=== PATIENT | female | born 1985 | race Caucasian/White ===

== ENCOUNTER 2023-04-01 12:24 | Emergency (ER) | payer SELFPAY ==
[2023-04-01 12:34] VITALS: BP 148/112; PULSE 83; RESP 16; TEMP 37.2; O2SAT 96; BMI 36.0
--- NOTE | 2023-04-01 12:47 | ED_ITS ---
HPI - GI Bleed General Chief complaint: GI Bleed Stated complaint: BLOOD IN STOOL Time Seen by Provider: 04/01/23 12:47 Source: patient Mode of arrival: walk-in History of Present Illness HPI Narrative: This emergency department complaining of abdominal cramping. She states that 3 and the morning she had diarrhea. The last 3 stools have been mucous bloody stools. Bright red blood. He states she gets severe cramping she has a bowel movement and then it resolves. She denies any dizziness, fever, palpitations, hematuria, dysuria. She's never had any problems like this before. She's never had a colonoscopy. There is no family history of colitis. She doesn't think she ate anything that could have made her sick. Patient denies any upper respiratory infection symptoms. She denies any chest pain, or shortness of breath.The patient denies any history of hemorrhoids. Related Data Home Medications Medication Instructions Recorded Confirmed buspirone 10 mg tablet 10 mg PO DAILY 04/01/23 04/01/23 escitalopram oxalate 10 mg tablet 10 mg PO DAILY 04/01/23 04/01/23 (Lexapro) Previous Rx's Medication Instructions Recorded metronidazole 500 mg tablet 500 mg PO Q8H 14 days #42 tabs 04/01/23 Allergies Allergy/AdvReac Type Severity Reaction Status Date / Time Sulfa (Sulfonamide Allergy Severe Hives Verified 04/01/23 12:42 Antibiotics) morphine AdvReac Severe hives Uncoded 04/01/23 12:42 Review of Systems ROS Status of ROS 10 or more systems reviewed and unremarkable except as noted in history and below [facility] Medical History (Updated 04/01/23 @ 17:15 by Dee Kirk MD) Social History Smoking status: Heavy tobacco smoker Exam Narrative Exam Narrative: Nurses notes and vital signs reviewed and patient is not hypoxic. General: Nontoxic, Well-appearing and in no apparent distress. Skin: Warm, dry, no pallor noted. No Rash Head: Normocephalic, atraumatic. Neck: Supple, non-tender. Eye: Pupils are equal, round and EOMI. No scleral icterus. Ears, Nose, Mouth, and Throat: TM clear, no posterior oropharynx erythema or nasal mucosal hypertrophy, uvula is mid-line Oral mucosa is moist Cardiovascular: Regular Rate and Rhythm without murmur, gallop or rub. Respiratory: No accessory muscle use or respiratory distress. Lungs are clear to auscultation, no wheezing, rales or rhonchi Chest Wall: no tenderness Back: No midline thoracic or lumbar vertebral tenderness. No CVA tenderness Musculoskeletal: normal ROM, no calf or popliteal tenderness, no lower extremity edema/swelling GI: Abdomen is soft, non-distended. Normal bowel sounds. No masses appreciated. mildleft lower quadrant tenderness to palpation. No rebound, guarding, or rigidity noted. Neurological: A&O x4. No cranial nerve dysfunction observed. No truncal ataxia. Moves all extremities. Sensation intact. Psychiatric: Cooperative and interactive. Normal mood and affect. Constitutional Vital Signs - 24 hr 04/01/23 12:34 Temperature 98.9 F Pulse Rate [Monitor] 83 Respiratory Rate 16 Blood Pressure [Left Arm] 148/112 H Pulse Oximetry 96 Oxygen Delivery Method Room Air Course Vital Signs Vital signs: Vital Signs Temperature 98.9 F 04/01/23 12:34 Pulse Rate 83 04/01/23 12:34 Respiratory Rate 16 04/01/23 12:34 Blood Pressure 148/112 H 04/01/23 12:34 Pulse Oximetry 96 04/01/23 12:34 Oxygen Delivery Method Room Air 04/01/23 12:34 Temperature 98.9 F 04/01/23 12:34 Pulse Rate 83 04/01/23 12:34 Respiratory Rate 16 04/01/23 12:34 Blood Pressure 148/112 H 04/01/23 12:34 Pulse Oximetry 96 04/01/23 12:34 Oxygen Delivery Method Room Air 04/01/23 12:34 MDM - GI Bleed MDM Narrative Medical decision making narrative: pt had an IV established. She was given 1 L of normal saline. Lab studies were done. patient remains hemodynamically stable.CT scan results were done. The patient was given us a stool sample. Patient felt better. I'll for social discussed with patient. Patient will be started on Flagyl prophylactically and will follow up with primary care doctor. We advised patient she will need to follow up with the travel money advisor. At this time the patient is without objective evidence of an acute process requiring hospitalization or inpatient management. The patient has remained hemodynamically stable. No additional indication for emergent studies at this time. I answered all questions. Discussed discharge instructions including standard anticipatory guidance and what should prompt a return to the emergency department, including if they get worse are not getting better or develops any new or concerning symptoms. I've given them specific time frame in which to follow-up, and who to follow-up with. The patient demonstrates understanding. Patient is nontoxic and stable for discharge with outpatient follow-up. This note was created with the assistance of a speech recognition program. Although the intention is to generate documents that actually reflects the content of the visit, no guarantees can be provided that every mistake has been identified and corrected by editing. Differential Diagnosis Differential diagnosis: Likely hemorrhoids, Lower gastrointestinal hemorrhage and hematochezia Lab Data Attestation: I reviewed the patient's lab results. Labs: Lab Results 04/01/23 04/01/23 Range/Units 13:15 15:20 WBC 11.5 H (4.0-11.0) 10^3/uL RBC 4.54 (4.20-5.40) 10^6/uL Hgb 13.6 (12.0-16.0) g/dL Hct 41.1 (36.0-48.0) % MCV 90.5 (81.0-99.0) fL MCH 30.0 (26.7-34.0) pg MCHC 33.1 (29.9-35.2) g/dL RDW 12.9 (11.0-15.0) % Plt Count 266 (150-450) 10^3/uL MPV 10.7 (9.5-13.5) fL Seg Neuts % (Manual) 62.0 Lymphocytes % (Manual) 27.0 (20.5-60.0) % Monocytes % (Manual) 5.0 (1.7-12.0) % Eosinophils % (Manual) 6.0 (0.9-7.0) % Basophils % (Manual) 0.0 L (0.2-2.0) % Neutrophils # (Manual) 7.13 H (1.4-6.5) 10^3/uL Lymphocytes # (Manual) 3.10 (1.20-3.80) 10^3/uL Monocytes # (Manual) 0.57 (0.30-0.80) 10^3/uL Eosinophils # (Manual) 0.69 (0.00-0.70) 10^3/uL Basophils # (Manual) 0.00 (0.00-0.10) 10^3/uL Sodium 137 (136-145) mmol/L Potassium 4.2 (3.5-5.1) mmol/L Chloride 103 (98-107) mmol/L Carbon Dioxide 27.1 (21.0-32.0) mmol/L Anion Gap 11.1 BUN 9.0 (7.0-18.0) mg/dL Creatinine 0.72 (0.55-1.02) mg/dL Est GFR ( Amer) >60 (>=60) Est GFR (Non-Af Amer) >60 (>=60) BUN/Creatinine Ratio 12.5 Glucose 134 H (74-106) mg/dL Calcium 8.6 (8.5-10.1) mg/dL Total Bilirubin 0.4 (0.2-1.0) mg/dL AST 10 L (15-37) U/L ALT 22 (14-59) U/L Alkaline Phosphatase 63 (46-116) U/L Total Protein 6.8 (6.4-8.2) g/dL Albumin 3.7 (3.4-5.0) g/dL Globulin 3.1 g/dL Albumin/Globulin Ratio 1.2 Lipase 98.0 (73.0-393.0) U/L Stool Occult Blood Positive A Stl C. cayetanensis PCR Not detected (NOT DETECTE) Stool Rotavirus (PCR) Not detected (NOT DETECTE) Stool Adenovirus (PCR) Not detected (NOT DETECTE) Stool Astrovirus (PCR) Not detected (NOT DETECTE) Stool Campylobacter PCR Not detected (NOT DETECTE) Stool Cryptosporidium PCR Not detected (NOT DETECTE) St Sh/Enteroin Ecoli PCR Not detected (NOT DETECTE) Stool E.coli 0157 Cult Not detected (NOT DETECTE) Stl Enterotoxigenic E PCR Not detected (NOT DETECTE) Stool EPEC (PCR) Not detected (NOT DETECTE) Stl E. histolytica PCR Not detected (NOT DETECTE) Stool Giardia Lamblia PCR Not detected (NOT DETECTE) Stl P. shigelloides PCR Not detected (NOT DETECTE) Stool Salmonella PCR Not detected (NOT DETECTE) Stool Sapovirus (PCR) Not detected (NOT DETECTE) Stl Shiga-like Tx 1 PCR Not detected (NOT DETECTE) St Y.enterocolitica PCR Not detected (NOT DETECTE) Stl Vibrio cholerae PCR Not detected (NOT DETECTE) Stl Enteroaggr Ecoli PCR Not detected (NOT DETECTE) Stl Norovirus GI/GII PCR Not detected (NOT DETECTE) C. difficile Toxin A&B Not detected (NOT DETECTE) Vibrio Culture Not detected (NOT DETECTE) Discharge Plan Discharge Chief Complaint: GI Bleed Clinical Impression: Colitis Patient Disposition: Home, Self-Care Time of Disposition Decision: 17:15 Condition: Good Mode of Transportation: Private Vehicle Prescriptions / Home Meds: New metronidazole 500 mg tablet 500 mg PO Q8H 14 Days Qty: 42 0RF No Action buspirone 10 mg tablet 10 mg PO DAILY escitalopram oxalate [Lexapro] 10 mg tablet 10 mg PO DAILY Instructions: Colitis (ED) Stand Alone Forms: Portal Instructions Referrals: SHARYN OSMAN MD [Physician] - 1 week Physician,Non-Staff, [Primary Care Provider] - 1 week Discharge Date/Time: 04/01/23 17:32
--- NOTE | 2023-04-01 12:57 | CT_ITS ---
[address] [address] Patient Name: ARABELLA SMAANIEGO MRN: [id number] date: 1985 Sex: F Assigned Patient Location: ER Current Patient Location: ER Accession/Order Number: [id number] Exam Date: 04/01/2023 13:40 Report Date: 04/01/2023 14:19 At the request of: SAMMY CHARLES Procedure: CT abdomen pelvis w con EXAMINATION: CT ABDOMEN AND PELVIS WITH IV CONTRAST CLINICAL HISTORY: Hematochezia TECHNIQUE: CT of the abdomen and pelvis was performed using standard technique, scanning from just above the dome of the diaphragm to the symphysis pubis. All CT scans at this facility use dose modulation, iterative reconstruction, and/or weight based dosing when appropriate to reduce radiation dose to as low as reasonably achievable. Contrast: IV: 100 ml of Omnipaque 350r COMPARISON: None. RESULT: Liver: No mass. Hepatomegaly, craniocaudal length 22.3 cm. Biliary: No bile duct dilation. Gallbladder is unremarkable. Spleen: No mass. No splenomegaly. Pancreas: No mass or duct dilation. Adrenals: No mass. Kidneys: No mass, calculus or hydronephrosis. GI tract: Stomach is unremarkable. Diffuse wall thickening, mild hyperemia involving the descending and rectosigmoid colon concerning for infectious colitis. No bowel dilation. Appendix is unremarkable. Lymph nodes: No abdominal or pelvic lymphadenopathy. Mesentery/Peritoneum: No ascites or mass. Retroperitoneum: No mass. Vasculature: The celiac axis and SMA are patent. The portal vein and branches, splenic vein, SMV, and hepatic veins are patent. No abdominal aortic aneurysm. Pelvis: No mass, ascites or fluid collection. Urinary bladder is unremarkable. Bilateral ovarian cysts. Bones/Soft Tissues: No significant finding. Lower thorax: Unremarkable. IMPRESSION: Diffuse descending colon and rectosigmoid wall thickening and hyperemia concerning for infectious colitis. Hepatomegaly. Electronically authenticated by: SUSI DAVIDSON Date: 04/01/2023 14:19
--- NOTE | 2023-04-01 12:57 | ECG_ITS ---
The [facility] Test Date: 2023-04-01 Pat Name: ARABELLA SAMANIEGO Department: Room: - Gender: Female [employer]: : 1985 Requested By: Order Number: [id number] Reading MD: LAURA DUQUE Measurements Intervals [place] Rate: 62 P: 49 [place]: 204 QRS: 79 QRSD: 84 T: 64 QT: 432 QTc: 437 Interpretive Statements 1100 Sinus rhythm 1570 with occasional ventricular premature complexes 8102 Low QRS voltage in chest leads 9140 abnormal rhythm ECG No previous ECG available for comparison Electronically Signed On 04-02-2023 6:23:27 EDT by LAURA DUQUE
[2023-04-01 13:34] VITALS: PULSE 62
[2023-04-01 13:34] LABS: Hematocrit 41.1 % (36.0-48.0); Hemoglobin 13.6 g/dL (12.0-16.0); Mean Corpuscular HGB Conc 33.1 g/dL (29.9-35.2); Mean Corpuscular Volume 90.5 fL (81.0-99.0); Mean Platelet Volume 10.7 fL (9.5-13.5); Platelet Count 266 10^3/uL (150-450); Red Blood Count 4.54 10^6/uL (4.20-5.40); Red Cell Distribution Width 12.9 % (11.0-15.0); White Blood Count 11.5 10^3/uL (4.0-11.0)
[2023-04-01 13:47] LABS: Alanine Aminotransferase 22 U/L (14-59); Albumin Globulin Ratio 1.2; Albumin Level 3.7 g/dL (3.4-5.0); Alkaline Phosphatase 63 U/L (46-116); Anion Gap 11.1; Aspartate Amino Transferase 10 U/L (15-37); BUN Creatinine Ratio 12.5; Bilirubin Total 0.4 mg/dL (0.2-1.0); Calcium 8.6 mg/dL (8.5-10.1); Carbon Dioxide 27.1 mmol/L (21.0-32.0); Chloride 103 mmol/L (98-107); Estimated GFR (African America >60 (>=60); Estimated GFR (Non-African Ame >60 (>=60); Globulin 3.1 g/dL; Glucose 134 mg/dL (74-106); Potassium 4.2 mmol/L (3.5-5.1); Sodium 137 mmol/L (136-145); Total Protein 6.8 g/dL (6.4-8.2)
[2023-04-01] MEDS: PANTOPRAZOLE SODIUM 40 MG VIAL IV (13:51)
[2023-04-01] MEDS: 0.9 % SODIUM CHLORIDE 1,000 ML 999 ML IV (13:52)
[2023-04-01 13:54] LABS: Eosinophils Absolute Manual 0.69 10^3/uL (0.00-0.70); Monocytes Absolute Manual 0.57 10^3/uL (0.30-0.80); Segmented Neut Absolute Manual 7.13 10^3/uL (1.4-6.5)
[2023-04-01 15:29] LABS: Adenovirus F 40/41 NOT DETECTED (NOT DETECTE); Astrovirus NOT DETECTED (NOT DETECTE); Campylobacter NOT DETECTED (NOT DETECTE); Cryptosporidium NOT DETECTED (NOT DETECTE); Cyclospora cayetanensis NOT DETECTED (NOT DETECTE); E coli 0157 NOT DETECTED (NOT DETECTE); Entamoeba histolytica NOT DETECTED (NOT DETECTE); Enteroaggregative E.coli NOT DETECTED (NOT DETECTE); Enteropathogenic E.coli NOT DETECTED (NOT DETECTE); Enterotoxigenic E. coli NOT DETECTED (NOT DETECTE); Giardia lamblia NOT DETECTED (NOT DETECTE); Norovirus GI/GII NOT DETECTED (NOT DETECTE); Plesiomonas shigelloides NOT DETECTED (NOT DETECTE); Rotavirus A NOT DETECTED (NOT DETECTE); Salmonella NOT DETECTED (NOT DETECTE); Sapovirus NOT DETECTED (NOT DETECTE); Shiga-like toxin-producing E.C NOT DETECTED (NOT DETECTE); Shigella/Enteroinvasive E.coli NOT DETECTED (NOT DETECTE); Vibrio NOT DETECTED (NOT DETECTE); Vibrio cholerae NOT DETECTED (NOT DETECTE); Yersinia enterocolitica NOT DETECTED (NOT DETECTE)
[2023-04-01 15:45] LABS: Occult Blood Positive
== END 2023-04-01 17:32 | disposition home or self-care (01) ==
PROVIDERS: Emergency Provider Emergency Medicine
DX: K52.9 Noninfective gastroenteritis and colitis, unspecified (principal); Z79.899 Other long term (current) drug therapy; F17.210 Nicotine dependence, cigarettes, uncomplicated
CPT/HCPCS: 36415; 74177; 80053; 83690; 85027; 87507; 93005; 96374; 99285; G0328; Q9967

== ENCOUNTER 2023-08-06 19:24 | Emergency (ER) | payer OTHER, SELFPAY ==
[2023-08-06 19:30] VITALS: BP 138/85; PULSE 74; RESP 16; TEMP 36.7; O2SAT 98; BMI 34.3
--- NOTE | 2023-08-06 19:53 | XR_ITS ---
The [address] [address] Patient Name: ARABELLA SAMANIEGO MRN: [id number] date: 1985 Sex: F Assigned Patient Location: ED.MAIN Current Patient Location: ER Accession/Order Number: [id number] Exam Date: 08/06/2023 20:35 Report Date: 08/06/2023 20:48 At the request of: VILMA PALOMO Procedure: XR chest 1V EXAM: XR chest 1V at 2002 hours HISTORY: Cough COMPARISON: None. TECHNIQUE: AP upright portable chest x-ray FINDINGS: The heart is not enlarged and the vasculature is not distended. No acute infiltrate, effusion or pneumothorax is identified. The osseous structures are grossly intact. XR/XR chest 1V IMPRESSION: No acute infiltrate or evidence of cardiac decompensation. Direct comparison with a previous study may be helpful in determining the chronicity of these findings. Electronically authenticated by: IGNACIO BINGHAM Date: 08/06/2023 20:48
--- NOTE | 2023-08-06 19:57 | ED_ITS ---
HPI - URI/Sore Throat General Chief Complaint: Upper Respiratory Infection Stated Complaint: cough, nausea Time Seen by Provider: 08/06/23 19:39 History of Present Illness HPI Narrative: patient is a 38-year-old female to history of asthma presents the emergency department for four day history of cough, chest congestion, wheezing and nausea. She states she had an episode of emesis last night. She has had no objective fevers. She is regular smoker. She is not concerned for . No medications taken prior to arrival. She does have an albuterol inhaler at home that she tried earlier today without improvement. Related Data Home Medications Medication Instructions Recorded Confirmed buspirone 10 mg tablet 10 mg PO DAILY 04/01/23 04/01/23 escitalopram oxalate 10 mg tablet 10 mg PO DAILY 04/01/23 04/01/23 (Lexapro) Previous Rx's Medication Instructions Recorded azithromycin 250 mg tablet See Rx Instructions PO .COMPLEX #6 08/06/23 (Zithromax Z-Sergio) tabs [id number]-mqnhibbzqfuhakd-QP 10 ml PO Q6H PRN cold symptoms 08/06/23 2 mg-30 mg-10 mg/5 mL oral syrup #200 mL (Bromfed DM) methylprednisolone 4 mg tablets in See Rx Instructions .Route 08/06/23 a dose pack (Medrol (Sergio)) .COMPLEX #21 ea ondansetron 4 mg disintegrating 4 mg PO Q6H PRN nausea and 08/06/23 tablet vomiting #12 tabs Allergies Allergy/AdvReac Type Severity Reaction Status Date / Time Sulfa (Sulfonamide Allergy Severe Hives Verified 04/01/23 12:42 Antibiotics) morphine AdvReac Severe hives Uncoded 04/01/23 12:42 Review of Systems ROS Constitutional Denies: fever or chills Ears, nose, mouth, and throat Reports: throat pain and nasal congestion Respiratory Reports: shortness of breath, cough and wheezing Gastrointestinal Reports: nausea and vomiting Musculoskeletal Denies: back pain Integumentary/Breast Denies: rash Neurological Denies: headache Hematologic/Lymphatic Denies: easy bruising [facility] Medical History (Updated 08/06/23 @ 20:52 by RUBEN Quinteros) Bipolar disorder ?F31.9 - Bipolar disorder, unspecified (ICD-10) Depression ?F32.A - Depression, unspecified (ICD-10) Obesity ?E66.9 - Obesity, unspecified (ICD-10) Social History Smoking status: Current every day smoker Exam Narrative Exam Narrative: Gen.: Awake, alert, in no distress Head: Normocephalic, atraumatic ENT: Moist mucous membranes Respiratory: No respiratory distress, expiratory wheezing globally Cardio: Regular rate and rhythm Extremities: Moves extremities equally Psych: Normal mood and affect Neuro: No focal neuro deficit Skin: Warm, dry, intact Constitutional Vital Signs, click to edit/add: Last Vital Signs Temp 98.0 F 08/06/23 19:30 Pulse 66 08/06/23 20:25 Resp 18 08/06/23 20:25 BP 138/85 08/06/23 19:30 Pulse Ox 99 08/06/23 20:25 O2 Del Method Room Air 08/06/23 20:25 Course Vital Signs Vital signs: Vital Signs Temperature 98.0 F 08/06/23 19:30 Pulse Rate 74 08/06/23 19:30 Respiratory Rate 16 08/06/23 19:30 Blood Pressure 138/85 08/06/23 19:30 Pulse Oximetry 98 08/06/23 19:30 Oxygen Delivery Method Room Air 08/06/23 19:30 Temperature 98.0 F 08/06/23 19:30 Pulse Rate 66 08/06/23 20:25 Respiratory Rate 18 08/06/23 20:25 Blood Pressure 138/85 08/06/23 19:30 Pulse Oximetry 99 08/06/23 20:25 Oxygen Delivery Method Room Air 08/06/23 20:25 MDM - URI/Sore Throat MDM Narrative Medical decision making narrative: patient with a negative Covid test, negative chest x-ray. She was given a breathing treatment and steroids in the Emergency Room. She'll be discharged home with antibiotics, Bromfed-DM, steroids. She has an albuterol inhaler at home and that she can use. Follow-up with PCP and return to the Emergency Room if symptoms change or worsen. vital signs stable at discharge. Medical Records Attestation: I reviewed the patient's medical records. Lab Data Attestation: I reviewed the patient's lab results. Labs: Lab Results 08/06/23 Range/Units 20:11 SARS-CoV-2 (PCR) Negative (NEGATIVE) Imaging Data Chest x-ray: Attestation: I have reviewed the pertinent imaging results. Radiologist's impression: Procedure: XR chest 1V EXAM: XR chest 1V at 2002 hours HISTORY: Cough COMPARISON: None. TECHNIQUE: AP upright portable chest x-ray FINDINGS: The heart is not enlarged and the vasculature is not distended. No acute infiltrate, effusion or pneumothorax is identified. The osseous structures are grossly intact. IMPRESSION: No acute infiltrate or evidence of cardiac decompensation. Direct comparison with a previous study may be helpful in determining the chronicity of these findings. Electronically authenticated by: IGNACIO BINGHAM Date: 08/06/2023 20:48 Discharge Plan Discharge Chief Complaint: Upper Respiratory Infection Clinical Impression: Upper respiratory infection Patient Disposition: Home, Self-Care Time of Disposition Decision: 20:52 Condition: Good Prescriptions / Home Meds: New azithromycin [Zithromax Z-Sergio] 250 mg tablet See Rx Instructions .ROUTE .COMPLEX Qty: 6 0RF Rx Instructions: For 250 mg dose pack: take 500 mg today (day 1), then 250 mg for 4 days (days 2-5) methylprednisolone [Medrol (Sergio)] 4 mg tablets,dose pack See Rx Instructions .ROUTE .COMPLEX Qty: 21 0RF Rx Instructions: Taper as directed [id number]-ertqbzibg-NX [Bromfed DM] 2-30-10 mg/5 mL syrup 10 ml PO Q6H PRN (Reason: cold symptoms) Qty: 200 0RF ondansetron 4 mg tablet,disintegrating 4 mg PO Q6H PRN (Reason: nausea and vomiting) Qty: 12 0RF No Action buspirone 10 mg tablet 10 mg PO DAILY escitalopram oxalate [Lexapro] 10 mg tablet 10 mg PO DAILY Instructions: Upper Respiratory Infection (ED) Stand Alone Forms: Portal Instructions Referrals: Physician,Non-Staff, MD [Primary Care Provider] - 1 week Discharge Date/Time: 08/06/23 20:59
[2023-08-06] MEDS: PREDNISONE 20 MG TABLET 60 MG PO (20:12)
[2023-08-06] MEDS: ONDANSETRON 4 MG RAPDIS TABLET SL (20:12)
[2023-08-06 20:13] VITALS: PULSE 71; RESP 18; O2SAT 96
[2023-08-06] MEDS: ALBUTEROL SULFATE 2.5 MG/3 ML VIAL NEB IH (20:13)
[2023-08-06] MEDS: IPRATROPIUM/ALBUTEROL SULFATE 3 ML AMPUL.NEB IH (20:13)
[2023-08-06 20:25] VITALS: PULSE 66; RESP 18; O2SAT 99
[2023-08-06 20:28] LABS: SARS-CoV-2 Ag NEGATIVE (NEGATIVE)
[2023-08-07 15:24] LABS: SARS-CoV-2 NAA NOT DETECTED (NOT DETECTE)
== END 2023-08-06 20:59 | disposition home or self-care (01) ==
PROVIDERS: Physician Assistant; Emergency Provider Internal Medicine
DX: J06.9 Acute upper respiratory infection, unspecified (principal); F31.9 Bipolar disorder, unspecified; E66.9 Obesity, unspecified; Z20.822 Contact with and (suspected) exposure to COVID-19; Z68.34 Body mass index [BMI] 34.0-34.9, adult; F17.210 Nicotine dependence, cigarettes, uncomplicated; Z79.899 Other long term (current) drug therapy
CPT/HCPCS: 71045; 87635; 87811; 94640; 99284

== ENCOUNTER 2023-08-11 09:55 | Emergency (ER) | payer OTHER, SELFPAY ==
[2023-08-11 10:22] VITALS: BP 140/101; PULSE 67; RESP 18; TEMP 37.1; O2SAT 98; BMI 35.2
--- NOTE | 2023-08-11 10:28 | XR_ITS ---
The [address] [address] Patient Name: ARABELLA SAMANIEGO MRN: [id number] date: 1985 Sex: F Assigned Patient Location: ER Current Patient Location: ER Accession/Order Number: [id number] Exam Date: 08/11/2023 10:35 Report Date: 08/11/2023 10:51 At the request of: DIETER YEPEZ Procedure: XR chest 1V PROCEDURE: XR chest 1V DATE: 08/11/2023 9:35 AM CDT COMPARISONS: 08/06/2023 CLINICAL INDICATION: 38 years Female sob FINDINGS: The cardiomediastinal silhouette and pulmonary vasculature are within normal limits. The lungs are clear. There is no evidence of pleural effusion or pneumothorax. There is subtle 7 mm lucency overlying the medial right clavicle also seen on previous exam. This may represent a bone cyst. Its etiology is unclear. It probably is of no clinical significance. XR/XR chest 1V IMPRESSION: Chest radiograph is within normal limits. Electronically authenticated by: GRECIA MUSE Date: 08/11/2023 10:51
[2023-08-11] MEDS: METHYLPREDNISOLONE SOD SUCC PF 125 MG/2 ML VIAL IVP (11:54)
[2023-08-11] MEDS: IPRATROPIUM/ALBUTEROL SULFATE 3 ML AMPUL.NEB IH (12:00)
[2023-08-11 12:01] VITALS: O2SAT 97
[2023-08-11 12:26] VITALS: BP 136/88; PULSE 89; RESP 18; O2SAT 98
--- NOTE | 2023-08-11 18:40 | ED.URI1 ---
HPI - URI/Sore Throat General Chief Complaint: Upper Respiratory Infection Stated Complaint: URTI COMPLAINTS Time Seen by Provider: 08/11/23 10:27 Source: patient Limitations: no limitations History of Present Illness HPI Narrative: The patient was recently diagnosed with a asthma exacerbation discharged home with Medrol Dosepak she is coming to us after there was no improvement of her symptoms she still feeling tight in her chest No other complaints of chest pain Related Data Home Medications Medication Instructions Recorded Confirmed buspirone 10 mg tablet 10 mg PO DAILY 04/01/23 04/01/23 escitalopram oxalate 10 mg tablet 10 mg PO DAILY 04/01/23 04/01/23 (Lexapro) Previous Rx's Medication Instructions Recorded azithromycin 250 mg tablet See Rx Instructions PO .COMPLEX #6 08/06/23 (Zithromax Z-Sergio) tabs usihwnznxazxhbv-nzcfbzwwyzmmapu-XX 10 ml PO Q6H PRN cold symptoms 08/06/23 2 mg-30 mg-10 mg/5 mL oral syrup #200 mL (Bromfed DM) ondansetron 4 mg disintegrating 4 mg PO Q6H PRN nausea and 08/06/23 tablet vomiting #12 tabs famotidine 20 mg tablet (Pepcid) 20 mg PO BID #14 tabs 08/11/23 prednisone 20 mg tablet 40 mg PO DAILY 5 days #10 tabs 08/11/23 Allergies Allergy/AdvReac Type Severity Reaction Status Date / Time Sulfa (Sulfonamide Allergy Severe Hives Verified 04/01/23 12:42 Antibiotics) morphine Allergy Intermediate Hives Verified 08/07/23 07:21 Review of Systems ROS Status of ROS 10 or more systems reviewed and unremarkable except as noted in history and below PFSH [facility] Medical History (Updated 08/11/23 @ 12:26 by Kadie Suarez MD) Bipolar disorder ?F31.9 - Bipolar disorder, unspecified (ICD-10) Depression ?F32.A - Depression, unspecified (ICD-10) Obesity ?E66.9 - Obesity, unspecified (ICD-10) Social History Smoking status: Current every day smoker Exam Narrative Exam Narrative: Nurses notes and vital signs reviewed and patient is not hypoxic. General: Well-appearing and in no apparent distress. Skin: Warm, dry, no pallor noted. No rash. Head: Normocephalic, atraumatic. Neck: Supple, non-tender. Eye: Pupils are equal, round and EOMI. No scleral icterus. Ears, Nose, Mouth, and Throat: TM are clear, no nasal mucosal hypertrophy. Oral mucosa is moist, no posterior oropharynx erythema, uvula is mid-line Cardiovascular: Regular Rate and Rhythm without murmur, gallop or rub. Respiratory: No accessory muscle use or respiratory distress. Lungs bilateral expiratory lung wheezes heard in both lung salcido Chest Wall: no tenderness Back: No midline thoracic or lumbar vertebral tenderness. No CVA tenderness Musculoskeletal: normal ROM, no calf or popliteal tenderness, no lower extremity edema/swelling GI: Abdomen is soft, non-distended. Normal bowel sounds. No masses appreciated. No tenderness to palpation. No rebound, guarding, or rigidity noted. Neurological: A&O x4. No cranial nerve dysfunction observed. No truncal ataxia. Moves all extremities. Sensation intact. Psychiatric: Cooperative and interactive. Normal mood and affect. Constitutional Vital Signs, click to edit/add: Last Vital Signs Temp 98.8 F 08/11/23 10:22 Pulse 89 08/11/23 12:26 Resp 18 08/11/23 12:26 BP 136/88 08/11/23 12:26 Pulse Ox 98 08/11/23 12:26 O2 Del Method Nasal Cannula 08/11/23 12:01 Course Vital Signs Vital signs: Vital Signs Temperature 98.8 F 08/11/23 10:22 Pulse Rate 67 08/11/23 10:22 Respiratory Rate 18 08/11/23 10:22 Blood Pressure 140/101 H 08/11/23 10:22 Pulse Oximetry 98 08/11/23 10:22 Oxygen Delivery Method Room Air 08/11/23 10:22 Temperature 98.8 F 08/11/23 10:22 Pulse Rate 89 08/11/23 12:26 Respiratory Rate 18 08/11/23 12:26 Blood Pressure 136/88 08/11/23 12:26 Pulse Oximetry 98 08/11/23 12:26 Oxygen Delivery Method Nasal Cannula 08/11/23 12:01 MDM - URI/Sore Throat MDM Narrative Medical decision making narrative: The patient chest x-ray showed no acute pathology she was provided with a Solu-Medrol in the ER after which she was feeling much better Discharged home with prednisone The patient to come back in case of any new symptoms or concerns The patient is to follow up with primary care physician in next 2-3 days or to return to the emergency department should any of the signs or symptoms worsen or new symptoms develop. The patient agrees with the following Diagnosis and Treatment plan and the patient will be discharged home. Discharge Plan Discharge Chief Complaint: Upper Respiratory Infection Clinical Impression: Asthma exacerbation Patient Disposition: Home, Self-Care Time of Disposition Decision: 12:25 Condition: Good Prescriptions / Home Meds: New prednisone 20 mg tablet 40 mg PO DAILY 5 Days Qty: 10 0RF famotidine [Pepcid] 20 mg tablet 20 mg PO BID Qty: 14 0RF Discontinued methylprednisolone [Medrol (Sergio)] 4 mg tablets,dose pack See Rx Instructions .ROUTE .COMPLEX Qty: 21 0RF Rx Instructions: Taper as directed No Action buspirone 10 mg tablet 10 mg PO DAILY escitalopram oxalate [Lexapro] 10 mg tablet 10 mg PO DAILY azithromycin [Zithromax Z-Sergio] 250 mg tablet See Rx Instructions .ROUTE .COMPLEX Qty: 6 0RF Rx Instructions: For 250 mg dose pack: take 500 mg today (day 1), then 250 mg for 4 days (days 2-5) ppchaclpazrmawb-xghxxzigb-TO [Bromfed DM] 2-30-10 mg/5 mL syrup 10 ml PO Q6H PRN (Reason: cold symptoms) Qty: 200 0RF ondansetron 4 mg tablet,disintegrating 4 mg PO Q6H PRN (Reason: nausea and vomiting) Qty: 12 0RF Instructions: Asthma (ED) Stand Alone Forms: Portal Instructions Referrals: Physician,Non-Staff, MD [Primary Care Provider] - 1 week Discharge Date/Time: 08/11/23 12:33
== END 2023-08-11 12:33 | disposition home or self-care (01) ==
PROVIDERS: Emergency Provider Emergency Medicine
DX: J45.901 Unspecified asthma with (acute) exacerbation (principal); F31.9 Bipolar disorder, unspecified; E66.9 Obesity, unspecified; Z68.35 Body mass index [BMI] 35.0-35.9, adult; F17.210 Nicotine dependence, cigarettes, uncomplicated; Z79.899 Other long term (current) drug therapy
CPT/HCPCS: 71045; 94640; 96374; 99284; J2930

== ENCOUNTER 2023-10-10 20:16 | Emergency (ER) | payer OTHER, SELFPAY ==
[2023-10-10 20:20] VITALS: BP 142/83; PULSE 60; RESP 18; TEMP 36.9; O2SAT 99; BMI 35.2
--- NOTE | 2023-10-10 20:30 | ED_ITS ---
HPI - URI/Sore Throat General Chief Complaint: Upper Respiratory Infection Stated Complaint: URTI Time Seen by Provider: 10/10/23 20:25 Source: patient Limitations: no limitations History of Present Illness HPI Narrative: 38 year old female presents to the ED for sore throat, sinus congestion/drainage, cough, body aches, fatigue. Onset was 10/05/23. Denies fever, SOB, emesis, diarrhea. Rates her pain /10. Denies chance of . MD elicited complaint: Reports cough, sore throat, rhinorrhea and nasal congestion; Denies fever Related Data Home Medications Medication Instructions Recorded Confirmed buspirone 10 mg tablet 10 mg PO DAILY 04/01/23 04/01/23 escitalopram oxalate 10 mg tablet 10 mg PO DAILY 04/01/23 04/01/23 (Lexapro) Previous Rx's Medication Instructions Recorded azithromycin 250 mg tablet See Rx Instructions PO .COMPLEX #6 08/06/23 (Zithromax Z-Sergio) tabs lxfewjpmsogwinn-bpoqarlypxgjzgi-TS 10 ml PO Q6H PRN cold symptoms 08/06/23 2 mg-30 mg-10 mg/5 mL oral syrup #200 mL (Bromfed DM) ondansetron 4 mg disintegrating 4 mg PO Q6H PRN nausea and 08/06/23 tablet vomiting #12 tabs famotidine 20 mg tablet (Pepcid) 20 mg PO BID #14 tabs 08/11/23 prednisone 20 mg tablet 40 mg (2 x 20 mg) PO DAILY 5 days 08/11/23 #10 tabs benzonatate 100 mg capsule 100 mg PO TID PRN cough #20 caps 10/10/23 guaifenesin 600 mg tablet, 600 mg PO BID PRN congestion, 10/10/23 extended release 12 hr (Mucinex) cough #10 tabs prednisone 20 mg tablet 40 mg (2 x 20 mg) PO DAILY #10 tabs 10/10/23 Allergies Allergy/AdvReac Type Severity Reaction Status Date / Time Sulfa (Sulfonamide Allergy Severe Hives Verified 04/01/23 12:42 Antibiotics) morphine Allergy Intermediate Hives Verified 08/07/23 07:21 Review of Systems ROS Constitutional Reports: chills; Denies: fever Ears, nose, mouth, and throat Reports: throat pain, nasal discharge and nasal congestion; Denies: neck pain, throat swelling, ear pain or ear discharge Cardiovascular Reports: chest pain Respiratory Reports: cough; Denies: shortness of breath, wheezing or stridor Gastrointestinal Denies: abdominal pain, nausea, vomiting or diarrhea Musculoskeletal Denies: back pain or neck pain Integumentary/Breast Denies: rash Neurological Reports: headache [facility] Medical History (Updated 10/10/23 @ 20:55 by Jeny Kincaid) Obesity ?E66.9 - Obesity, unspecified (ICD-10) Bipolar disorder ?F31.9 - Bipolar disorder, unspecified (ICD-10) Depression ?F32.A - Depression, unspecified (ICD-10) Social History Smoking status: Current every day smoker Exam Constitutional Vital Signs, click to edit/add: Last Vital Signs Temp 98.4 F 10/10/23 20:20 Pulse 60 10/10/23 20:20 Resp 18 10/10/23 20:20 BP 142/83 H 10/10/23 20:20 Pulse Ox 99 10/10/23 20:20 Common normals: no apparent distress and oriented x3 General appearance: cooperative HENUT Common normals: normocephalic Face and sinus: normal facial exam Nose: external nose normal and nasal discharge External ear: external ears normal Mouth: oral and palatal mucosa normal and tongue normal; no drooling Eye Common normals: conjunctivae normal and no scleral icterus Neck & C-Spine Common normals: supple Chest Common normals: inspection of chest normal Chest: symmetrical chest wall rise Respiratory Common normals: normal respiratory effort Effort & inspection: symmetric chest movement Auscultation: clear to auscultation bilaterally Cardio Common normals: regular rate and regular rhythm Neuro Common normals: oriented x3 Sensorium/orientation: alert Speech: speech normal Gait (neuro): normal gait Course Vital Signs Vital signs: Vital Signs Temperature 98.4 F 10/10/23 20:20 Pulse Rate 60 10/10/23 20:20 Respiratory Rate 18 10/10/23 20:20 Blood Pressure 142/83 H 10/10/23 20:20 Pulse Oximetry 99 10/10/23 20:20 Temperature 98.4 F 10/10/23 20:20 Pulse Rate 60 12/20/23 20:20 Respiratory Rate 18 10/10/23 20:20 Blood Pressure 142/83 H 10/10/23 20:20 Pulse Oximetry 99 10/10/23 20:20 MDM - URI/Sore Throat MDM Narrative Medical decision making narrative: She tested positive for Covid-19. Influenza and strep were negative. Prescrip tions were provided for mucinex, prednisone, and tessalon perles. Follow up with pcp for a recheck, further evaluation and treatment. Return precautions were discussed. Differential Diagnosis Differential diagnosis: Likely upper respiratory infection, sinusitis, viral infection, bronchitis and pharyngitis Medical Records Attestation: I reviewed the patient's medical records. Lab Data Attestation: I reviewed the patient's lab results. Labs: Lab Results 10/10/23 Range/Units 20:40 SARS-CoV-2 (PCR) Positive A (NEGATIVE) Influenza Type A Ag Negative Influenza Type B Ag Negative Streptococcus Screen Negative Discharge Plan Discharge Chief Complaint: Upper Respiratory Infection Clinical Impression: COVID-19 Patient Disposition: Home, Self-Care Time of Disposition Decision: 20:58 Condition: Good Mode of Transportation: Private Vehicle Prescriptions / Home Meds: New prednisone 20 mg tablet 40 mg PO DAILY Qty: 10 0RF guaifenesin [Mucinex] 600 mg tablet extended release 12hr 600 mg PO BID PRN (Reason: congestion, cough) Qty: 10 0RF benzonatate 100 mg capsule 100 mg PO TID PRN (Reason: cough) Qty: 20 0RF No Action buspirone 10 mg tablet 10 mg PO DAILY escitalopram oxalate [Lexapro] 10 mg tablet 10 mg PO DAILY azithromycin [Zithromax Z-Sergio] 250 mg tablet See Rx Instructions .ROUTE .COMPLEX Qty: 6 0RF Rx Instructions: For 250 mg dose pack: take 500 mg today (day 1), then 250 mg for 4 days (days 2-5) akwcwuscszlgpzp-rbwoaleam-SQ [Bromfed DM] 2-30-10 mg/5 mL syrup 10 ml PO Q6H PRN (Reason: cold symptoms) Qty: 200 0RF ondansetron 4 mg tablet,disintegrating 4 mg PO Q6H PRN (Reason: nausea and vomiting) Qty: 12 0RF prednisone 20 mg tablet 40 mg PO DAILY 5 Days Qty: 10 0RF famotidine [Pepcid] 20 mg tablet 20 mg PO BID Qty: 14 0RF Instructions: COVID-19 (Coronavirus Disease 2019) (ED), How to Recover from COVID-19 at Home (ED) Additional Instructions: Return to the ER if your condition worsens. Stand Alone Forms: Portal Instructions Referrals: Physician,Non-Staff, MD [Primary Care Provider] - 1 week Discharge Date/Time: 10/10/23 21:20
[2023-10-10 20:51] LABS: Internal Control Within Normal Limits; Strep A Antigen Screen Negative
[2023-10-10 20:52] LABS: SARS-CoV-2 Ag POSITIVE (NEGATIVE)
[2023-10-10 20:55] LABS: Influenza Virus A Antigen Negative; Influenza Virus B Antigen Negative; Internal Control Within Normal Limits
--- OUTSIDE RECORDS SUMMARY | 2023-10-11 10:12 | XMS_ITS | CCD ---
Author Name Unknown Address [address] [place] [address] Organization [facility] Care Team Providers Care Yield Improvement Engineer Name Role Phone Felecia Weems Unavailable Tiara Vo Unavailable KOREY Weems Attending Provider Felecia Weems Attending Unavailable Felecia Weems Admitting Unavailable NON STAFF Primary Care Unavailable Allergies Allergy Classification Reported Allergen(s) Allergy Type Date of Onset Reaction(s) Facility (4 sources) Sulfonamides (Antibiotic) Propensity to adverse reactions [facility] Other (2 sources) Sulfonamides (Antibiotic); Translations: [Sulfa (Sulfonamide Antibiotics)] Allergy to substance [facility] Medications Current Medications Medication Drug Class(es) Dates Sig (Normalized) Sig (Original) busPIRone hydrochloride 5 mg oral tablet (1 source) busPIRone HCl 5 MG Oral for 30 Days Active cholecalciferol 0.05 mg oral tablet (1 source) Vitamin D Vitamin D3 50 MCG (1999) Oral for 90 Days Active dextromethorphan hydrobromide 15 mg / guaiFENesin 400 mg / pseudoephedrine hydrochloride 60 mg oral tablet (1 source) alpha-Adrenergic Agonist, Uncompetitive C-rpnwzs-Z-aspartate Receptor Antagonist, Sigma-1 Agonist Start: 07-17-2023 take 4 tablets by mouth every twenty-four hours as needed Capmist DM 60-15-400 MG as needed Orally every 4-6 hours as needed, max 4 tablets in 24 hours for 5 days Jun, Active 24 hr venlafaxine 150 mg extended release oral capsule (5 sources) Serotonin and Norepinephrine Reuptake Inhibitor Start: 04-25-2021 take 150 mg by mouth once daily Venlafaxine Active 150 MG PO Daily April 25, 2021 12:00am Effexor Not-Taki ng Effexor Active Completed/Discontinued Medications Medication Drug Class(es) Dates Sig (Normalized) Sig (Original) 200 actuat albuterol 0.09 mg/actuat dry powder inhaler (7 sources) beta2-Adrenergic Agonist Start: 09-23-2019 End: 12-06-2019 Albuterol Sulfate Discontinued 2 INH INHALATION EVERY 4-6 HOURS September 23, 2019 1:00am December 06, 2019 8:19pm Start: 09-23-2019 End: 04-25-2021 take 1 puff(s) by inhalation every four to six hours Albuterol Sulfate (Proventil Hfa) 90 mcg/actuation Hfa Aerosol Inhaler Discontinued 2 PUFF INHALATION EVERY 4-6 HOURS September 23, 2019 1:00am April 25, 2021 6:12pm with spacer Start: 02-11-2019 End: 09-23-2019 Albuterol Sulfate Discontinu ed 2 INH INHALATION every 6 to 8 hours February 11, 2019 12:00am September 23, 2019 9:24am take 2 puff(s) by in halation every four to six hours as needed Albuterol Sulfate HFA 108 (90 Base) MCG/ACT 2 puffs as needed Inhalation every 4-6 hours for 14 days Not-Taking take 2 puff(s) by in halation every four to six hours as needed Albuterol Sulfate HFA 108 (90 Base) MCG/ACT 2 puffs as needed Inhalation every 4-6 hours for 14 days Not-Taking amoxicillin 500 mg oral capsule (4 sources) Penicillin-class Antibacterial Start: 09-26-2022 take 1 capsule by mouth every twelve hours Amoxicillin 500 MG 1 capsule Orally Twice a day for 10 days Sep, Not-Taking brompheniramine maleate 0.4 mg/ml / dextromethorphan hydrobromide 2 mg/ml / pseudoephedrine hydrochloride 6 mg/ml oral solution (5 sources) alpha-Adrenergic Agonist, Uncompetitive F-awifeg-T-aspartate Receptor Antagonist, Sigma-1 Agonist Start: 09-26-2022 take 10 mL by mouth every six hours Pseudoeph-Bromph en-DM 30-2-10 MG/5ML 10 mL Orally every 6 hours for 5 days Sep, Not-Taking Start: 12-06-2019 End: 04-25-2021 take 1 mL by mouth every six hours Aynhqgkaunbpoxf-Bcsbmmxhp-Vw (Bromfed Dm ) 2-30-10 mg/5 mL syrup Discontinued 10 ML PO Q6H 118 December 06, 2019 1:00am April 25, 2021 6:12pm cyclobenzaprine hydrochloride 10 mg oral tablet (1 source) Muscle Relaxant Start: 07-25-2020 End: 04-25-2021 take 10 mg by mouth at bedtime Cyclobenzaprine Discontinued 10 MG PO Bedtime July 25, 2020 6:07pm April 25, 2021 6:13pm escitalopram 20 mg oral tablet (2 sources) Serotonin Reuptake Inhibitor Start: 09-23-2019 End: 04-25-2021 take 1 tablet by mouth once daily Escitalopram Oxalate (Lexapro) 20 mg Tablet Discontinued 20 MG PO Daily September 23, 2019 1:00am April 25, 2021 6:13pm take 1 tablet by mouth once romeo y Escitalopram Oxalate 10 MG take 1 tablet by mouth once daily Oral for 30 Days Active fluticasone propionate 0.05 mg/actuat metered dose nasal spray (4 sources) Corticosteroid Start: 09-26-2022 take 1 spray(s) nasal route once daily Flonase Allergy Relief 50 MCG/ACT 1 spray in each nostril Nasally Once a day for 14 day(s) Sep, Not-Taking Fluticasone Propion-Salmeterol (1 source) Corticosteroid, beta2-Adrenergic Agonist Start: 02-11-2019 End: 09-23-2019 Fluticasone Propion-Salmetero l (Advair Diskus) 250-50 mcg/dose blister with device Discontinued 1 INH INHALATION Twice daily 60 February 11, 2019 12:00am September 23, 2019 9:24am ibuprofen 600 mg oral tablet (2 sources) Nonsteroidal Anti-inflammatory Drug Start: 09-23-2019 End: 12-06-2019 Ibuprofen Discontinued MG PO Every 6 hours December 06, 2019 8:19pm December 06, 2019 8:19pm do not exceed 4 doses in a 24 hour period ondansetron 4 mg disintegrating oral tablet (3 sources) Serotonin-3 Receptor Antagonist Start: 11-02-2022 take 1 tablet by mouth every eight hours Ondansetron 4 MG 1 tablet on the tongue and allow to dissolve Orally every 8 hours for 5 days Oct, Not-Taking oseltamivir 75 mg oral capsule (3 sources) Neuraminidase Inhibitor Start: 10-05-2022 take 1 capsule by mouth every twenty-four hours Tamiflu 75 MG 1 capsule Orally once a day for 10 days Sep, Not-Taking predniSONE 20 mg oral tablet (3 sources) Start: 12-06-2019 End: 04-25-2021 take 60 mg by mouth once daily Prednisone Discontinued 60 MG PO Daily July 25, 2020 12:00am April 25, 2021 6:13pm Start: 02-11-2019 End: 09-23-2019 take 60 mg by mouth once daily Prednisone Discontinued 60 MG PO Daily 09 24February 11, 2019 12:00am September 23, 2019 9:24am ProAir HFA 108 (90 Base) MCG/ACT (4 sources) take 2 puff(s) by in halation every four hours as needed ProAir HFA 108 (90 Base) MCG/ACT 2 puffs as needed Inhalation every 4 hrs for 30 days Not-Taking take 2 puff(s) by in halation every four hours as needed ProAir HFA 108 (90 Base) MCG/ACT 2 puffs as needed Inhalation every 4 hrs for 30 days Active Problems Active Problems Problem Classification Problem Date Documented Date Episodic/Chronic Asthma (1 source) Exacerbation of asthma; Translations: [Unspecified asthma with (acute) exacerbation] 12-06-2019 Chronic Chronic obstructive pulmonary disease and bronchiectasis (1 source) Bronchitis; Translations: [Bronchitis, not specified as acute or chronic] 07-25-2020 Episodic Immunizations and screening for infectious disease (6 sources) Contact with and (suspected) exposure to other viral communicable diseases; Translations: [Contact with and (suspected) exposure to other viral communicable diseases] Episodic Influenza (1 source) Influenza-like illness; Translations: [Influenza due to unidentified influenza virus with other respiratory manifestations] 12-06-2019 Episodic Nausea and vomiting (1 source) Nausea Episodic Other upper respiratory infections (7 sources) Acute upper respiratory infection, unspecified; Translations: [Acute pharyngitis, unspecified] Onset: 07-17-2023 Episodic Otitis media and related conditions (1 source) Other acute nonsuppurative otitis media, left ear Episodic Sprains and strains (1 source) Strain of thoracic region; Translations: [Strain of muscle and tendon of unspecified wall of thorax, initial encounter] 07-25-2020 Episodic Syncope (1 source) Syncope; Translations: [Syncope and collapse] 04-25-2021 Episodic Past or Other Problems Problem Classification Problem Date Documented Da te Episodic/Chronic Unclassified (1 source) Suspected COVID-19 virus infection Z20.822 Results Test Name Value Interpretation Reference Range Facil ity COVID + FLU Quick Testingon 07-17-2023 SARS-CoV-2 (COVID-19) RNA SULTANA+probe Ql (Unsp spec) Negative [facility] Other COVID + FLU Quick Testing Negative [facility] Other Quick Strepon 07-17-2023 S. pyogenes Org specific cx Ql (Throat) Negative [facility] Other Quick Strep [facility] Other Throat Cultureon 07-17-2023 Throat culture Moderate Normal Respiratory Nery 2 Days PERFORMED BY: [place] [address] PATHOLOGIST SKEET OPERATOR CHON ALSTON M.D. [facility] Comment on above: Performed By: #### C [place] #### [address] COVID/FLU RT-PCRon SARS-CoV-2 (COVID-19) RNA SULTANA+probe Ql (Unsp spec) Negative [facility] Other COVID/FLU RT-PCR Negative [facility] Other Quick Strepon 11-02-2022 S. pyogenes Org specific cx Ql (Throat) Negative [facility] Other Quick Strep [facility] Other COVID/FLU/RSV RT-PCRon 09-26 SARS-CoV-2 (COVID-19) RNA SULTANA+probe Ql (Unsp spec) Negative [facility] Other COVID/FLU/RSV RT-PCR Negative [facility] Other Vital Signs Date Time Vital Sign Value Performing Clinician Facility 07-17-2023 13:20-0400 Body height 162.56 cm Felecia Weems Other [facility] Other 07-17-2023 13:20-0400 Body mass index (BMI) [Ratio] 34.91 kg/m2 Felecia Weems Other [facility] Other 07-17-2023 13:20-0400 Body temperature 99.3 [degF] Felecia Weems Other [facility] Other 07-17-2023 13:20-0400 Body weight 92.26 kg Felecia Weems Other [facility] Other 07-17-2023 13:20-0400 Diastolic blood pressure 73 mm[Hg] Felecia Weems Other [facility] Other 07-17-2023 13:20-0400 Respiratory rate 18 /min Felecia Weems Other [facility] Other 07-17-2023 13:20-0400 SaO2% (BldA) [Mass fraction] 98 % Felecia Weems Other [facility] Other 07-17-2023 13:20-0400 Systolic blood pressure 119 mm[Hg] Felecia Weems Other [facility] Other 11-02-2022 17:15-0500 Body height 162.56 cm Felecia Weems Other [facility] Other 11-02-2022 17:15-0500 Body mass index (BMI) [Ratio] 35.53 kg/m2 Felecia Weems Other [facility] Other 11-02-2022 17:15-0500 Body temperature 98.1 [degF] Felecia Weems Other [facility] Other 11-02-2022 17:15-0500 Body weight 93.9 kg Felecia Weems Other [facility] Other 11-02-2022 17:15-0500 Diastolic blood pressure 82 mm[Hg] Felecia Weems Other [facility] Other 11-02-2022 17:15-0500 Respiratory rate 18 /min Felecia Weems Other [facility] Other 11-02-2022 17:15-0500 SaO2% (BldA) [Mass fraction] 98 % Felecia Weems Other [facility] Other 11-02-2022 17:15-0500 Systolic blood pressure 127 mm[Hg] Felecia Weems Other [facility] Other 09-26-2022 14:30-0500 Body height 162.56 cm Felecia Weems Other [facility] Other 09-26-2022 14:30-0500 Body mass index (BMI) [Ratio] 35.18 kg/m2 Felecia Weems Other [facility] Other 09-26-2022 14:30-0500 Body temperature 98.9 [degF] Felecia Weems Other [facility] Other 09-26-2022 14:30-0500 Body weight 92.99 kg Felecia Weems Other [facility] Other 09-26-2022 14:30-0500 Respiratory rate 18 /min Felecia Weems Other [facility] Other 09-26-2022 14:30-0500 SaO2% (BldA) [Mass fraction] 95 % Felecia Weems Other [facility] Other Encounters Encounter Date Encounter Type Care Provider Facility Start: 07-17-2023 End: 07-17-2023 ambulatory Felecia Weems Facility:[facility] Start: 07-17-2023 Office outpatient visit 25 minutes Felecia Weems [facility] Start: 07-17-2023 End: 07-17-2023 ambulatory TUBE DISPATCHER Felecia Weems Work Phone: [facility] Work Phone: Start: 07-17-2023 End: 07-17-2023 Departed Referred TUBE DISPATCHER Felecia Weems Work Phone: [facility] [place] Work Phone: Start: 11-02-2022 End: 11-02-2022 ambulatory Felecia Weems Other [facility] Other Start: 11-02-2022 Office outpatient visit 25 minutes Felecia Weems [facility] Start: 10-05-2022 End: 10-05-2022 ambulatory Tiara Vo Other [facility] Other Start: 10-05-2022 Telephone encounter Tiara tay [facility] Start: 09-26-2022 End: 09-26-2022 ambulatory Felecia Weems Other [facility] Other Start: 09-26-2022 Office outpatient visit 25 minutes Felecia Dank [facility] Plan of Treatment Date Care Activity Detail Author Start: 07-17-2023 Throat culture Throat Culture [facility] Bacteria identified in Throat by Aerobe culture [facility] Payers Date Payer Category Payer Medicaid [id number] 2023 Self-pay [id number] Unknown [id number] [id number] Unknown [id number] Social History Date Type Detail Facility Unknown if ever smoked [facility] Other Sex Assigned At Sex Assigned At Bir th [facility] Other Start: 04-25-2021 Tobacco smoking status NHIS Smoker (finding) [facility] Start: 1985 Sex Assigned At Female F [facility] Evaluation note 07-17-2023 Note Date & Type Note Facility 07-17-2023 Evaluation note Encounter Date Diagnosis Assessment Notes Jun, Sore throat (ICD-10 - J02.9) Jun, Viral URI (ICD-10 - J06.9) Advised patient that rapid COVID/Influenza A/B and Strep tests were negative today in office. Throat culture obtained, will call with results in 2-5 days. At time of results, treatment plan may change. Advised that we will treat as viral URI. Supportive care as directed, increase fluids and rest, Tylenol/Motrin as directed, rx of Capmist, OTC Flonase, cool mist humidifier, throat lozenges. Discussed infection control practices such as good hand washing and mask wearing. Patient to follow up with PCP if symptoms persist or worsen despite treatment. Immediate eval for SOB, difficulty breathing, chest pain, fevers that do not break with antipyretic or any other concerning symptoms as reviewed on patient education handout. Mother verbalizes understanding and is agreeable to treatment plan. Patient left in stable condition Jun, Suspected COVID-19 virus infection (ICD-10 - Z20.822) [facility] Other Evaluation note 11-02-2022 Note Date & Type Note Facility 11-02-2022 Evaluation note Encounter Date Diagnosis Assessment Notes Oct, Nausea (ICD-10 - R11.0) Oct, Viral URI (ICD-10 - J06.9) Advised patient that COVID/Influenz a A/B test and rapid Strep test was negative today. Advised patient that will treat as viral URI. Supportive care as directed, increase fluids and rest, Tylenol/Motrin as directed, OTC cough/cold remedies as directed on packaging, cool mist humidifier, throat lozenges. May use rx of zofran for nausea. Discussed infection control practices such as good hand washing and mask wearing. Patient to follow up with PCP if symptoms persist or worsen despite treatment. Immediate eval for SOB, difficulty, chest pain, fevers that do not break with antipyretic or any other concerning symptoms as reviewed on patient education handout. Patient verbalizes understanding and is agreeable to treatment plan. Patient left in stable condition Oct, Sore throat (ICD-10 - J02.9) Oct, Contact with and (suspected) exposure to other viral communicable diseases (ICD-10 - Z20.828) [facility] Other Evaluation note 09-26-2022 Note Date & Type Note Facility 09-26-2022 Evaluation note Encounter Date Diagnosis Assessment Notes Sep, Viral URI with cough (ICD-10 - J06.9) Advised patient that COVID/Influenz a A/B/RSV PCR tests were negative today. Advised patient that will treat as viral URI. Supportive care as directed, increase fluids and rest, Tylenol/Motrin as directed, rx of Bromfed, Flonase, and Albuterol Inhaler as directed, cool mist humidifier, throat lozenges. Discussed infection control practices such as good hand washing and mask wearing. Patient to follow up with PCP if symptoms persist or worsen despite treatment. Immediate eval for SOB, difficulty, chest pain, fevers that do not break with antipyretic or any other concerning symptoms as reviewed on patient education handout. Patient verbalizes understanding and is agreeable to treatment plan. Patient left in stable condition Sep, Acute otitis media with effusion of left ear (ICD-10 - H65.192) Discussed diagnosis with patient. Advised that ear infections are often secondary to viral URIs. Advised to take antibiotics as directed, complete entire course even if feeling better. Use rx Flonase and Zyrtec as directed. Supportive care, Tylenol/Motrin as needed for aches/fever, warm compress to affected ear, push fluids and rest. Follow up with PCP if symptoms do not improve in the next 2-3 days. Immediate eval for severe ear pain, severe headache, neck pain/stiffness , pain, erythema, or redness behind the ear, fever, N/V, hearing loss, fever, or any other new or concerning symptoms. Patient verbalizes understanding and is agreeable to treatment plan Sep, Contact with and (suspected) exposure to other viral communicable diseases (ICD-10 - Z20.828) [facility] Other Evaluation note Note Date & Type Note Facility Evaluation note No Information [id number] Other Evaluation note Note Date & Type Note Facility Evaluation note No assessment information [facility] Work Phone: History general Narrative - Reported Note Date & Type Note Facility History general Narrative - Reported Type Medical History asthma Medical History pcos Medical History bipolar disorder Surgical History d&c Surgical History x2 Hospitalization History see above [facility] Other Advance Directives No Advanced Directives Records Found Advance Directive Response Recorded Date/ Time Advance Directives No November 23, 2017 6:56pm Summary Purpose Family History No Family History Records Found Additional Source Comments REASON FOR VISIT (unrecogniz ed section and content) CHILLS COUGH CONGESTIOM B/AN o Informationsore throat, white dots on throat, coughSORETHROAT, GLANDS ARE SWOLLEN, LOW GRADE FEVER Care Teams (unrecognized sec tion and content) Team Status: Inactive Member Role Status Dates Felecia Weems APRN Attending Provider Active Goals (unrecognized section and content) Goals may be documented in a n alternate section INFORMATION SOURCE (unrecogn ized section and content) DATE CREATED AUTHOR 07/25/2023 [facility] FOR RECORDS PERTAINING TO PATIENTS WHO ARE OR HAVE BEEN ENROLLED IN A CHEMICAL DEPENDENCY/SUBSTANCEABUSE PROGRAM, SOME INFORMATION MAY BE OMITTED. This clinical summary was aggregated from multiple sources. Caution should be exercised in using it in the provision of clinical care. This summary normalizes information from multiple sources, and as a consequence, information in this document may materially change the coding, format and clinical context of patient data. In addition, data may be omitted in some cases. CLINICAL DECISIONS SHOULD BE BASED ON THE PRIMARY CLINICAL RECORDS. [facility] [employer] provides no warranty or guarantee of the accuracy or completeness of information in this document.
== END 2023-10-10 21:20 | disposition home or self-care (01) ==
PROVIDERS: Nurse Practitioner Family; Emergency Provider Emergency Medicine
DX: U07.1 COVID-19 (principal); F31.9 Bipolar disorder, unspecified; E66.9 Obesity, unspecified; Z68.35 Body mass index [BMI] 35.0-35.9, adult; Z79.899 Other long term (current) drug therapy; F17.210 Nicotine dependence, cigarettes, uncomplicated
CPT/HCPCS: 87070; 87804; 87811; 87880; 99285

== ENCOUNTER 2024-02-06 00:46 | Emergency (ER) | payer OTHER, SELFPAY ==
[2024-02-06 00:50] VITALS: BP 128/72; PULSE 99; TEMP 36.7; O2SAT 98; BMI 34.3
--- OUTSIDE RECORDS SUMMARY | 2024-02-06 00:56 | XMS_ITS | CCD ---
Author Organization [facility] Care Team Providers Care Therapeutic Recreation Specialist Name Role Phone Felecia Weems Unavailable Tiara Vo Unavailable KOREY Weems Attending Provider Felecia Weems Attending Unavailable Felecia Weems Admitting Unavailable NON STAFF Primary Care Unavailable Allergies Allergy Classification Reported Allergen(s) Allergy Type Date of Onset Reaction(s) Facility (4 sources) Sulfonamides (Antibiotic) Propensity to adverse reactions [employer] Other (2 sources) Sulfonamides (Antibiotic); Translations: [Sulfa (Sulfonamide Antibiotics)] Allergy to substance [facility] Medications Current Medications Medication Drug Class(es) Dates [...] oral tablet (1 source) alpha-Adrenergic Agonist, Uncompetitive V-uimxuf-T-aspartate Receptor Antagonist, Sigma-1 Agonist Start: 07-17-2023 take [...] oral solution (5 sources) alpha-Adrenergic Agonist, Uncompetitive E-parrcg-I-aspartate Receptor Antagonist, Sigma-1 Agonist Start: 09-26-2022 take 10 mL by mouth every six hours Pseudoeph-Bromph en-DM 30-2-10 MG/5ML 10 mL Orally every 6 hours for 5 days Sep, Not-Taking Start: 12-06-2019 End: 04-25-2021 take 1 mL by mouth every six hours Rppbmegqmlysvpj-Nmafkkkey-Qn (Bromfed Dm ) 2-30-10 mg/5 mL syrup Discontinued 10 ML PO Q6H 118 December 06, 2019 1:00am April 25, 2021 6:12pm cyclobenzaprine hydrochloride 10 mg oral tablet (1 source) Muscle Relaxant Start: 07-25-2020 End: 04-25-2021 take 10 mg by mouth at bedtime Cyclobenzaprine Discontinued 10 MG PO Bedtime 7 July 25, 2020 6:07pm April 25, 2021 [...] (COVID-19) RNA SULTANA+probe Ql (Unsp spec) Negative [facility] Other COVID + FLU Quick Testing Negative [facility] [employer] Other Quick Strepon 07-17-2023 S. pyogenes Org specific cx Ql (Throat) Negative [facility] Other Quick Strep [facility] Other Throat Cultureon 07-17-2023 Throat culture Moderate Normal Respiratory Nery 2 Days PERFORMED BY: [place] [address] PATHOLOGIST [employer] WELDER CHON ALSTON M.D. [facility] Comment on above: Performed By: #### C [place] #### [address] COVID/FLU RT-PCRon SARS-CoV-2 (COVID-19) RNA SULTANA+probe Ql (Unsp spec) Negative [facility] Other COVID/FLU RT-PCR Negative [facility] Other Quick Strepon 11-02-2022 S. pyogenes Org specific cx Ql (Throat) Negative [facility] Other Quick Strep [facility] Other COVID/FLU/RSV RT-PCRon 09-26 SARS-CoV-2 (COVID-19) RNA SULTANA+probe Ql (Unsp spec) Negative [facility] Other COVID/FLU/RSV RT-PCR Negative [facility] Other Vital Signs Date Time Vital Sign Value Performing Clinician Facility 07-17-2023 13:20-0400 Body height 162.56 cm Felecia Weems Other [facility] Other 07-17-2023 13:20-0400 Body mass index (BMI) [Ratio] 34.91 kg/m2 Felecia Weems Other [facility] Other 07-17-2023 13:20-0400 Body temperature 99.3 [degF] Felecia Weems Other [facility] Other 07-17-2023 13:20-0400 Body weight 92.26 kg Felecia Weems Other [facility] Other 07-17-2023 13:20-0400 Diastolic blood pressure 73 mm[Hg] Felecia Weems Other [facility] Other 07-17-2023 13:20-0400 Respiratory rate 18 /min Felecia Weems Other [facility] Other 07-17-2023 13:20-0400 SaO2% (BldA) [Mass fraction] 98 % Felecia Weems Other [facility] Other 07-17-2023 13:20-0400 Systolic blood pressure 119 mm[Hg] Felecia Weems Other [facility] Other 11-02-2022 17:15-0500 Body height 162.56 cm Felecia Weems Other [facility] Other 11-02-2022 17:15-0500 Body mass index (BMI) [Ratio] 35.53 kg/m2 Felecia Weems Other [facility] Other 11-02-2022 17:15-0500 Body temperature 98.1 [degF] Felecia Weems Other [facility] Other 11-02-2022 17:15-0500 Body weight 93.9 kg Felecia Weems Other [facility] Other 11-02-2022 17:15-0500 Diastolic blood pressure 82 mm[Hg] Felecia Weems Other [facility] Other 11-02-2022 17:15-0500 Respiratory rate 18 /min Felecia Weems Other [facility] Other 11-02-2022 17:15-0500 SaO2% (BldA) [Mass fraction] 98 % Felecia Weems Other [facility] Other 11-02-2022 17:15-0500 Systolic blood pressure 127 mm[Hg] Felecia Weems Other [facility] Other 09-26-2022 14:30-0500 Body height 162.56 cm Felecia Weems Other [facility] Other 09-26-2022 14:30-0500 Body mass index (BMI) [Ratio] 35.18 kg/m2 Felecia Weems Other [facility] Other 09-26-2022 14:30-0500 Body temperature 98.9 [degF] Felecia Weems Other [facility] Other 09-26-2022 14:30-0500 Body weight 92.99 kg Felecia Weems Other [facility] Other 09-26-2022 14:30-0500 Respiratory rate 18 /min Felecia Weems Other [facility] Other 09-26-2022 14:30-0500 SaO2% (BldA) [Mass fraction] 95 % Felecia Weems Other [facility] Other Encounters Encounter Date Encounter Type Care Provider Facility Start: 07-17-2023 End: 07-17-2023 ambulatory Felecia Weems Facility:[facility] Start: 07-17-2023 Office outpatient visit 25 minutes Felecia Weems [facility] Start: 07-17-2023 End: 07-17-2023 ambulatory SCHOOL OPERATIONS MANAGER Felecia Weems Work Phone: [facility] Work Phone: Start: 07-17-2023 End: 07-17-2023 Departed Referred SCHOOL OPERATIONS MANAGER Felecia Weems Work Phone: [facility] [place] Work Phone: Start: 11-02-2022 End: 11-02-2022 ambulatory Felecia Weems Other [facility] Other Start: 11-02-2022 Office outpatient visit 25 minutes Felecia Weems [facility] Start: 10-05-2022 End: 10-05-2022 ambulatory Tiara Vo Other [facility] Other Start: 10-05-2022 Telephone encounter Tiara tay [facility] Start: 09-26-2022 End: 09-26-2022 ambulatory Felecia Weems Other [facility] Other Start: 09-26-2022 Office outpatient visit 25 minutes Felecia Weems [facility] Plan of Treatment Date Care Activity Detail Author Start: 07-17-2023 Throat culture Throat Culture [facility] Bacteria identified in Throat by Aerobe culture [facility] Payers Date Payer Category Payer Medicaid [id number] 2023 Self-pay [id number] Unknown [id number] [id number] Unknown [id number] Social History Date Type Detail Facility Unknown if ever smoked [facility] Other Sex Assigned At Sex Assigned At Bir th [facility] Other Start: 04-25-2021 Tobacco smoking status NHIS Smoker (finding) [facility] Start: 1985 Sex Assigned At Female F [facility] Evaluation note 07-17-2023 Note Date & Type [...] Suspected COVID-19 virus infection (ICD-10 - Z20.822) [facility] Other Evaluation note 11-02-2022 Note Date & [...] other viral communicable diseases (ICD-10 - Z20.828) [facility] Other Evaluation note 09-26-2022 Note Date & [...] other viral communicable diseases (ICD-10 - Z20.828) [facility] Other Evaluation note Note Date & Type Note Facility Evaluation note No Information [employer] Other Evaluation note Note Date & Type Note Facility Evaluation note [facility]: History general Narrative - Reported Note Date & Type Note Facility History general Narrative - Reported Type Medical History asthma Medical History pcos Medical History bipolar disorder Surgical History d&c Surgical History x2 Hospitalization History see above [facility] Other Advance Directives No Advanced Directives Records [...] section and content) DATE CREATED AUTHOR 07/25/2023 [facility] FOR RECORDS PERTAINING TO PATIENTS WHO [...] BE BASED ON THE PRIMARY CLINICAL RECORDS. [facility], [facility]. provides no warranty or guarantee of the accuracy or completeness of information in this document.
--- NOTE | 2024-02-06 01:13 | ED.SKABFB1 ---
HPI - Skin/Abscess/Foreign Bdy General Chief complaint: Skin/Abscess/Foreign Body Stated complaint: lumps/bump on vaginal area Time Seen by Provider: 02/06/24 01:05 Source: patient Mode of arrival: walk-in Limitations: no limitations History of Present Illness HPI narrative: patient presents complaining of boils on her right labia for a couple of days. States she did squeeze them and got out some pus states she has had similar boils in the past but not on her genitals. No fever or vaginal discharge. No systemic symptoms of nausea. Related Data Home Medications ?Medication ?Instructions ?Recorded ?Confirmed buspirone 10 mg tablet 10 mg PO DAILY 04/01/23 02/06/24 escitalopram oxalate 10 mg tablet 10 mg PO DAILY 04/01/23 02/06/24 (Lexapro) Allergies Allergy/AdvReac Type Severity Reaction Status Date / Time Sulfa (Sulfonamide Allergy Severe Hives Verified 02/06/24 00:54 Antibiotics) morphine Allergy Intermediate Hives Verified 02/06/24 00:54 Review of Systems ROS Status of ROS 10 or more systems reviewed and unremarkable except as noted in history and below [facility] Medical History (Updated 02/06/24 @ 01:22 by Bay Wilkerson MD) Obesity ?E66.9 - Obesity, unspecified (ICD-10) Bipolar disorder ?F31.9 - Bipolar disorder, unspecified (ICD-10) Depression ?F32.A - Depression, unspecified (ICD-10) Social History Smoking status: Current every day smoker Exam Constitutional Vital Signs, click to edit/add: Last Vital Signs Temp 98.1 F 02/06/24 00:50 Pulse 99 H 02/06/24 00:50 Resp 18 02/06/24 00:50 BP 128/72 02/06/24 00:50 Pulse Ox 98 02/06/24 00:50 O2 Del Method Room Air 02/06/24 00:50 Common normals: no apparent distress, average body habitus, oriented x3, no limitations, healthy appearing, alert and well nourished [facility] Common normals: normocephalic Eye Common normals: PERRL, EOMs intact bilaterally and conjunctivae normal Respiratory Common normals: normal respiratory effort, no retractions, no use of accessory muscles and clear to auscultation bilaterally Cardio Common normals: regular rate, regular rhythm, S1 normal heart sound and S2 normal heart sound GI Common normals: Normal to inspection, nondistended, normoactive bowel sounds present, soft to palpation and non-tender Other: external genital exam performed with nursing present. Patient has 2 superficial abscess measuring about 2-2.5cm on the right labia majora. each abscess if open. No surrouding erythema. No swelling of the labia Extremity Common normals: normal to inspection and full ROM Neuro Common normals: oriented x3, CN's II-XII intact bilaterally, moves all extremities, no focal motor deficits and no sensory deficits noted Psych Appearance: grossly normal Course Vital Signs Vital signs: Vital Signs Temperature 98.1 F 02/06/24 00:50 Pulse Rate 99 H 02/06/24 00:50 Respiratory Rate 18 02/06/24 00:50 Blood Pressure 128/72 02/06/24 00:50 Pulse Oximetry 98 02/06/24 00:50 Oxygen Delivery Method Room Air 02/06/24 00:50 Temperature 98.1 F 02/06/24 00:50 Pulse Rate 99 H 02/06/24 00:50 Respiratory Rate 18 02/06/24 00:50 Blood Pressure 128/72 02/06/24 00:50 Pulse Oximetry 98 02/06/24 00:50 Oxygen Delivery Method Room Air 02/06/24 00:50 MDM - Skin/Abscess/Foreign Bdy MDM Narrative Medical decision making narrative: patient presents with 2 superficial abscess that she was able to squeeze and express exudate. Patient advised of the findings. No need for I and D as her lesions are already open. given dose of clindamycin and a prescription as well and discharged home Discharge Plan Discharge Stand Alone Forms: Portal Instructions Chief Complaint: Skin/Abscess/Foreign Body Clinical Impression: Abscess of right genital labia Patient Disposition: Home, Self-Care Prescriptions / Home Meds: No Action buspirone 10 mg tablet 10 mg PO DAILY escitalopram oxalate [Lexapro] 10 mg tablet 10 mg PO DAILY Print Language: Wolof Instructions: Abscess (ED) Additional Instructions: follow up with your doctor this week for recheck Referrals: ARACELI JENKINS [Primary Care Provider] - 1 week Discharge Date/Time: 02/06/24 01:36
[2024-02-06] MEDS: CLINDAMYCIN HCL 150 MG CAPSULE 300 MG PO (01:25)
== END 2024-02-06 01:36 | disposition home or self-care (01) ==
PROVIDERS: Emergency Provider Internal Medicine; PCP Nurse Practitioner Family
DX: N76.4 Abscess of vulva (principal); F31.9 Bipolar disorder, unspecified; E66.9 Obesity, unspecified; Z79.899 Other long term (current) drug therapy; Z68.34 Body mass index [BMI] 34.0-34.9, adult
CPT/HCPCS: 99283